=== PATIENT | male | born 1980 ===

== ENCOUNTER 2023-02-22 04:26 | Day surgery (SDC) | payer OTHER ==
[2023-02-17 16:44] VITALS: BMI 27.9
[2023-02-22] MEDS ORDERED: MIDAZOLAM HCL 2 MG/2 ML SINGLE DOSE VIAL ONE (13:00)
[2023-02-22 17:32] VITALS: BP 118/69; PULSE 75; RESP 20; TEMP 97.2
== END 2023-02-22 16:38 | disposition home or self-care (01) ==
LOC: JASU-SURG 04:26
PROVIDERS: ATTEND Urology
PROC: 0TF3XZZ Fragmentation in Right Kidney Pelvis, External Approach (ICD-10-PCS; principal; 2023-02-22 13:00)
DX: N20.0 Calculus of kidney (principal)